=== PATIENT | female | born 1965 | race Asian ===

== ENCOUNTER 2018-12-07 11:52 | Emergency (ER) | payer OTHER ==
[2018-12-07 13:22] LABS: BASOPHILS % (AUTO) 0.3 %; EOSINOPHILS # (AUTO) 0.1 10^3/uL (0.0-0.7); EOSINOPHILS % (AUTO) 0.6 %; HGB - HEMOGLOBIN 13.5 g/dL (12.0-16.0); LYMPHOCYTES # (AUTO) 0.9 10^3/uL (1.5-3.5); MEAN CORPUSCULAR HEMOGLOBIN 27.8 pg (27.0-31.0); MEAN CORPUSCULAR HGB CONC 32.5 g/dL (32.0-36.0); MEAN CORPUSCULAR VOLUME 85.6 fL (81.0-99.0); MEAN PLATELET VOLUME 8.5 fL (7.9-10.8); MONOCYTES # (AUTO) 0.4 10^3/uL (0.0-1.0); MONOCYTES % (AUTO) 3.3 %; NEUTROPHILS # (AUTO) 11.7 10^3/uL (1.5-6.6); NEUTROPHILS % (AUTO) 88.8 %; PLT - PLATELET COUNT 260 10^3/uL (130-450); RED BLOOD COUNT 4.85 10^6/uL (4.20-5.40); RED CELL DISTRIBUTION WIDTH 13.4 % (12.0-15.0); WHITE BLOOD COUNT 13.1 x10^3/uL (4.8-10.8)
[2018-12-07 13:34] LABS: ALBUMIN 4.6 g/dL (3.2-5.5); ALBUMIN/GLOBULIN RATIO 1.3 (1.0-2.2); BILIRUBIN,TOTAL 0.8 mg/dL (0.2-1.0); CALCIUM 9.3 mg/dL (8.5-10.3); CREATININE 0.9 mg/dL (0.4-1.0); TOTAL PROTEIN 8.1 g/dL (6.7-8.2)
[2018-12-07] MEDS ORDERED: SODIUM CHLORIDE 0.9% 1,000 ML IV ONE (14:27)
[2018-12-07] MEDS ORDERED: fentaNYL 100 MCG/2 ML VIAL IVP STA (14:27)
[2018-12-07] MEDS ORDERED: ONDANSETRON 4 MG/2 ML VIAL IVP STA (14:27)
[2018-12-07] MEDS ORDERED: IOPAMIDOL-300 100 ML VIAL ONE (14:47)
[2018-12-07] MEDS ORDERED: IOPAMIDOL-300 100 ML VIAL IVP ONE (15:05)
--- NOTE | 2018-12-07 15:25 | CT Report ---
Reason: LLQ pain Procedure Date: 12/07/2018 Accession Number: [id number] / [id number] Procedure: CT - Abdomen/Pelvis W CPT Code: FULL RESULT: EXAM: CT ABDOMEN AND PELVIS EXAM DATE: 12/07/2018 03:04 PM. CLINICAL HISTORY: LLQ pain. COMPARISONS: None. TECHNIQUE: Routine helical CT imaging was performed through the abdomen and pelvis. IV contrast: ISOVUE 300 100mL. Enteric contrast: No. Reconstructions: Coronal and sagittal. In accordance with CT protocol optimization, one or more of the following dose reduction techniques were utilized for this exam: automated exposure control, adjustment of mA and/or KV based on patient size, or use of iterative reconstructive technique. FINDINGS: Lung Bases: Unremarkable. Liver: There is hepatic steatosis. No focal hepatic lesions are seen. Gallbladder/Bile Ducts: Unremarkable. Spleen: Normal. Pancreas: Normal. Adrenal Glands: Normal. Kidneys: There is mild left hydronephrosis and perinephric stranding with delayed nephrogram. There is a 0.3 cm stone within the upper left ureter. Peritoneal Cavity/Bowel: No dilated or thick-walled bowel is seen. No intraperitoneal free air or free fluid. No enlarged mesenteric or retroperitoneal lymph nodes. No evidence of appendicitis. The appendix is well visualized and normal. Pelvic Organs: Normal. The bladder and visualized pelvic organs are within normal limits. Vasculature: No aneurysms or other significant abnormality. Bones: No significant abnormality. Other: None. IMPRESSION: 1. There is mild left hydronephrosis and perinephric stranding with delayed nephrogram. Findings are secondary to a 0.3 cm stone within the upper left ureter. 2. There is hepatic steatosis. 3. No evidence of bowel obstruction or appendicitis. RADIA
[2018-12-07] MEDS ORDERED: KETOROLAC 30 MG/ML VIAL IVP STA (15:35)
[2018-12-07 16:07] LABS: BILIRUBIN,URINE NEGATIVE (NEGATIVE); GLUCOSE, URINE (UA) NEGATIVE (NEGATIVE); KETONES,URINE (UA) NEGATIVE (NEGATIVE); LEUKOCYTE ESTERASE, URINE NEGATIVE (NEGATIVE); NITRITE,URINE NEGATIVE (NEGATIVE); OCCULT BLOOD,URINE LARGE (NEGATIVE); PH,URINE 6.5 PH (5.0-7.5); PROTEIN,URINE NEGATIVE (NEGATIVE); UROBILINOGEN,URINE 0.2 (NORMAL) E.U./dL (NORMAL)
[2018-12-07 16:12] LABS: CLARITY,URINE CLEAR (CLEAR)
[2018-12-07 16:28] LABS: BACTERIA,URINE None Seen /HPF (None Seen); SQUAMOUS EPITHELIAL CELL,UR RARE Squamous (<= Few); YEAST,URINE PRESENT
--- NOTE | 2018-12-07 17:17 | ED Physician Documentation ---
PD HPI ABD PAIN - Stated complaint Stated Complaint: STOMACH PAIN, VOMITING - Chief complaint Chief Complaint: Abd Pain - Additional information Additional information: 53-year-old female presents the emergency department with sudden onset of pain in her left lower abdomen which is associated with nausea. No history of similar. No radiation of the pain. No fevers or chills. Symptoms are described as a severe sharp stabbing pain. The patient denies blood in the urine or dysuria. No other associated symptoms. No relieving factors Review of Systems Constitutional: denies: Fever, Chills Eyes: denies: Discharge Ears: denies: Ear pain Nose: denies: Congestion Throat: denies: Oral lesions / sores Cardiac: denies: Chest pain / pressure Respiratory: denies: Dyspnea GI: reports: Abdominal Pain, Nausea : denies: Dysuria Skin: denies: Rash Neurologic: denies: Generalized weakness Psychiatric: denies: Hallucinations PD PAST MEDICAL HISTORY - Past Medical History Past Medical History: No - Past Surgical History Past Surgical History: No - Present Medications Home Medications: Ambulatory Orders Medication Instructions Recorded Confirmed Hydrocodone/Acetaminophen [[place] 1 each PO Q6HR PRN #20 tablet 12/07/18 5-325 Tablet] Naproxen 500 mg PO BID PRN #60 tablet 12/07/18 Ondansetron HCl [Zofran] 4 mg PO Q6HR PRN #30 tablet 12/07/18 - Allergies Allergies/Adverse Reactions: Allergies Allergy/AdvReac Type Severity Reaction Status Date / Time Sulfa (Sulfonamide Allergy Hives Verified 12/07/18 12:40 Antibiotics) - Social History Does the pt smoke?: No Smoking Status: Never smoker Does the pt drink ETOH?: Yes Does the pt have substance abuse?: No - Immunizations Immunizations are current?: Yes - POLST Patient has POLST: No PD ED PE NORMAL - General General: Alert and oriented X 3. No: No acute distress (The patient appears acu tely uncomfortable) - HEENT HEENT: Atraumatic, PERRL, EOMI, Ears normal - Neck Neck: Supple, no meningeal sign - Cardiac Cardiac: RRR - Respiratory Respiratory: No respiratory distress - Abdomen Abdomen: Soft, Non distended. No: Non tender (Tenderness in the left lower abdomen, no rebound or peritoneal signs) - Derm Derm: Normal color - Extremities Extremities: No deformity, No calf tenderness / cord - Neuro Neuro: Alert and oriented X 3, Normal speech - Psych Psych: Normal mood Results - Vitals Vitals: Vital Signs - 24 hr 12/07/18 12/07/18 12:35 14:40 Temperature 36.2 C L Heart Rate 77 77 Respiratory 16 16 Rate Blood Pressure 140/81 H 140/81 H O2 Saturation 97 97 Oxygen O2 Source Room air - Labs Labs: Laboratory Tests 12/07/18 12/07/18 12/07/18 13:14 13:14 15:50 WBC 13.1 H RBC 4.85 Hgb 13.5 Hct 41.5 MCV 85.6 MCH 27.8 MCHC 32.5 RDW 13.4 Plt Count 260 MPV 8.5 Neut # (Auto) 11.7 H Lymph # (Auto) 0.9 L [place] # (Auto) 0.4 Eos # (Auto) 0.1 Baso # (Auto) 0.0 Absolute Nucleated RBC 0.00 Nucleated RBC % 0.0 Sodium 137 Potassium 4.0 Chloride 102 Carbon Dioxide 25 Anion Gap 10.0 BUN 20 Creatinine 0.9 Estimated GFR (MDRD) 65 L Glucose 157 H Calcium 9.3 Total Bilirubin 0.8 AST 40 ALT 62 H Alkaline Phosphatase 72 Total Protein 8.1 Albumin 4.6 Globulin 3.5 Albumin/Globulin Ratio 1.3 Lipase 25 Urine Color YELLOW Urine Clarity CLEAR Urine pH 6.5 Ur Specific [place] 1.010 Urine Protein NEGATIVE Urine Glucose (UA) NEGATIVE Urine Ketones NEGATIVE Urine Occult Blood LARGE H Urine Nitrite NEGATIVE Urine Bilirubin NEGATIVE Urine Urobilinogen 0.2 (NORMAL) Ur Leukocyte Esterase NEGATIVE Urine RBC 6-10 H Urine WBC 0-3 Ur Squamous Epith Cells RARE Squamous Urine Bacteria None Seen Urine Yeast PRESENT Ur Microscopic Review INDICATED Urine Culture Comments NOT INDICATED - Rads (name of study) CT abd/pelvis Radiology: Final report received, See rad report (IMPRESSION: 1. There is mild left hydronephrosis and perinephric stranding with delayed nephrogram. Findings are secondary to a 0.3 cm stone within the upper left ureter. 2. There is hepatic steatosis. 3. No evidence of bowel obstruction or appendicitis. ) PD MEDICAL DECISION MAKING - ED course ED course: The patient has an acute kidney stone, there is no evidence of a superimposed infection. On reevaluation the patient is resting comfortably and her symptoms appear to be under control. Presently the patient appears appropriate for discharge and ongoing outpatient management. The patient resides in [facility] and will follow up with her primary care for referral to urology. I d iscussed warning signs and recommended returning to the emergency department for any worsening or concerns Departure - Departure Disposition: 01 Home, Self Care Clinical Impression: Urolithiasis Qualifiers: Urinary calculus location: ureter Qualified Code(s): N20.1 - Calculus of ureter Condition: Good Instructions: Kidney Stones Follow-Up: Jl Feliz DO [Physician No Access] - (call to schedule an appointment) Prescriptions: Hydrocodone/Acetaminophen [[place] 5-325 Tablet] 1 each PO Q6HR PRN #20 tablet PRN Reason: Pain Ondansetron HCl [Zofran] 4 mg PO Q6HR PRN #30 tablet PRN Reason: Nausea / Vomiting Naproxen 500 mg PO BID PRN #60 tablet PRN Reason: Pain Comments: Please follow-up with your primary care physician in [facility] so that they can refer you to a urologist in [place] to further manage your acute kidney stone Please return back to the emergency department for any worsening or any concerns Forms: Activity restrictions
[2018-12-07 17:34] VITALS: BP 117/67
== END 2018-12-07 17:34 | disposition home or self-care (01) ==
LOC: ED 11:52
DX: N20.1 Calculus of ureter (principal)
CPT/HCPCS: 36415; 74177; 80053; 81001; 83690; 85025; 93005; 96361; 96374; 96375; 99283; 99284; Q9967; 81003; 87086